=== PATIENT | female | born 1935 | race African-American/Black ===

== ENCOUNTER 2019-04-27 11:19 | Inpatient (IN) ==
--- NOTE | 2019-04-27 12:49 | Diag Imaging Result Doc PS360 ---
EXAM: CHEST-PORTABLE HISTORY: ams TECHNIQUE: Single view COMPARISON: 07/23/2017 FINDINGS: Poor inspiratory effort. The heart is mildly prominent. Mild vascular distention. No consolidation. No pleural effusions are found. IMPRESSION: Cardiomegaly with pulmonary edema. Electronically signed by Lalo Osman 04/27/2019 12:46 PM
--- NOTE | 2019-04-27 13:44 | PROVIDER DOCUMENTATION ---
This chart was entered by Dany Villalobos Scribe, acting as scribe for Jay Jay De Leon MD. HPI-Neurological Disorder - General Chief Complaint: Altered Mental Status Stated Complaint: CONFUSION Time Seen by Provider: 04/27/19 11:30 Source: patient, EMS Allergies/Adverse Reactions: Patient Allergies Allergy/AdvReac Type Severity Reaction Status Date / Time No Known Allergies Allergy Verified 04/27/19 11:54 Home Medications: Home Medication List Medication Instructions Recorded Confirmed Last Taken Type Rivaroxaban [Xarelto] 15 mg PO DAILY 06/09/15 04/27/19 04/25/19 07:00 History Carvedilol [Coreg] 6.25 mg PO BID 07/23/17 04/27/19 04/25/19 07:00 History Nifedipine E.r. [Adalat cc] 30 mg PO DAILY 07/23/17 04/27/19 04/25/19 07:00 History Latanoprost/Pf [Latanoprost 0.005% 1 drp OPHTHALMIC (EYE) HS 11/06/18 04/27/19 04/25/19 07:00 History Eye Drop] Losartan/Hydrochlorothiazide 1 ea PO DAILY 11/06/18 04/27/19 04/25/19 07:00 History [Losartan-Hctz 50-12.5 mg Tab] NPH, Human Insulin Isophane 10 unit SQ HS 11/06/18 04/27/19 04/25/19 07:00 History [Humulin N] NPH, Human Insulin Isophane 20 unit SQ QA 11/06/18 04/27/19 04/25/19 07:00 History [Humulin N] Sodium Bicarbonate 325 mg PO BID 11/06/18 04/27/19 04/25/19 07:00 History Latanoprost 1 drp BOTH EYES DAILY 04/27/19 04/27/19 04/25/19 07:00 History Levothyroxine Sodium 100 mcg PO DAILY 04/27/19 04/27/19 04/25/19 07:00 History - History of Present Illness-Neuro Nature of Presenting Problem: Pt is a 83 yof who presents to the ED with a CC of altered mental status. Pt reports she has been confused, weak, and has had a headache for three days. Pt reports she had thyroid surgery two weeks ago. Pt reports a hx of renal failure and states she is starting dialysis soon. Pt complains of generalized weakness and muscle aches. Pt denies any chest pain, nausea, vomiting, diarrhea, and shortness of breath. Headache Location: reports: global Severity: reports: mild Onset/Duration: reports: 3 days ago Timing: reports: still present Context: reports: other Character of Altered Mental Status: reports: confused Any recent trauma/injury?: reports: none Character of Deficits: reports: new weakness New weakness or altered sensation location:: reports: general (diffuse) Cognitive Baseline: alert, oriented x3 Gait Baseline: walks without assistance Associated Symptoms: reports: headache, confusion, weakness Similar Symptoms Previously?: Yes Recently seen or treated by another doctor?: No Review of Systems - Adult - REVIEW OF SYSTEMS - ADULT Constitutional: reports: see HPI Eyes: reports: no symptoms reported Ears, Nose, Mouth & Throat: reports: see HPI, throat pain Cardiovascular: reports: no symptoms reported Respiratory: reports: see HPI, cough Gastrointestinal: reports: no symptoms reported Genitourinary: reports: no symptoms reported Musculoskeletal: reports: see HPI, muscle aches, muscle weakness Integumentary: reports: no symptoms reported Neurological: reports: see HPI, headache/migraines Psychiatric: reports: see HPI Endocrine: reports: no symptoms reported Hematologic/Lymphatic: reports: no symptoms reported Allergic/Immunologic: reports: no symptoms reported All Other Systems: Reviewed and Negative Past History - Adult - PAST MEDICAL HISTORY-ADULT Review of Records: reports: Old Records Reviewed, Nursing Assessment Review, Medications Reviewed, Social history reviewed & non-contributory. Major Childhood Illnesses: reports: denies history Cardiovascular: reports: HTN Respiratory: reports: denies history Gastrointestinal: reports: denies history Obstetrical/Gynecological: reports: denies history Genitourinary: reports: dialysis Musculoskeletal: reports: denies history Neurological: reports: denies history Endocrine/Immune: reports: Diabetes Other Conditions: reports: denies history - PRIOR SURGERIES/PROCEDURES Surgical/Procedure History: reports: hysterectomy - IMMUNIZATION STATUS Childhood Immunizations: See Nurse Assessment Flu Vaccine: See Nurse Assessment - FAMILY HISTORY Family History: reviewed, not pertinent - SOCIAL HISTORY Smoking: denies, non-smoker Substance Use: none/never, denies Alcohol Use Frequency: never Physical Exam- Neurological - Physical Exam-Neuro Initial Vital Signs Reviewed: Yes General Appearance: alert, mild distress, obese Eye Exam: bilateral eye: PERRL HENMT: normocephalic/atraumatic, moist mucous membranes Head Injury: no evidence of injury Neck: non-tender, full range of motion Respiratory: chest non-tender, lungs clear, normal breath sounds Cardiovascular: normal peripheral pulses, regular rate, rhythm, no edema Abdominal Exam: non tender, soft Extremity: normal range of motion, non-tender stripper color Exam: normal hearing, normal speech, PERRL Neurologic: grossly normal, no motor/sensory deficits Integumentary: normal color, warm/dry Psych/Mental Status: normal mood/affect, normal thought content, normal thought process, oriented x 3 Progress - PLAN OF CARE/RESULTS Progress/Plan/Lab Results: Vital Signs - 8 hr 04/27/19 12:33 04/27/19 12:49 04/27/19 12:53 Pulse Rate 64 66 62 Respiratory Rate 19 18 18 Blood Pressure 93/60 93/60 93/60 O2 Sat by Pulse Oximetry 100 100 99 04/27/19 13:01 04/27/19 14:00 Pulse Rate 64 62 Respiratory Rate 17 17 Blood Pressure 122/82 148/99 O2 Sat by Pulse Oximetry 100 99 Laboratory Results - last 24 hr 04/27/19 04/27/19 04/27/19 13:00 14:26 14:36 WBC 12.87 H RBC 6.08 H Hgb 14.8 Hct 47.9 H MCV 78.8 L MCH 24.3 L MCHC 30.9 L RDW Std Deviation 17.2 H Plt Count 622 H MPV 9.8 Immature Gran % (Auto) 0.9 H Neut % (Auto) 66.5 Lymph % (Auto) 20.9 [place] % (Auto) 9.2 Eos % (Auto) 1.9 Baso % (Auto) 0.6 Immature Gran # (Auto) 0.12 H Neut # (Auto) 8.55 H Lymph # (Auto) 2.69 [place] # (Auto) 1.19 H Eos # (Auto) 0.24 Baso # (Auto) 0.08 Sodium Potassium Chloride Carbon Dioxide Anion Gap BUN Creatinine BUN/Creatinine Ratio Glucose POC Glucose 164 H D Calculated Osmolality Calcium Phosphorus Magnesium Total Bilirubin AST ALT Alkaline Phosphatase Total Protein Albumin Globulin Albumin/Globulin Ratio PTH Intact Urine Source CATH Urine Color YELLOW Urine Turbidity CLEAR Urine pH 7.0 Ur Specific [place] 1.013 Urine Protein 300 A Ur Glucose (Stick) TRACE Ur Ketones (Stick) NEGATIVE Urine Blood TRACE A Urine Nitrite NEGATIVE Urine Bilirubin NEGATIVE Urobilinogen Dipstick NORMAL Urine Leukocytes NEGATIVE Urine WBC (Auto) <10 Urine RBC (Auto) <10 U Epithel Cells (Auto) <10 Urine Bacteria (Auto) NEGATIVE 04/27/19 14:36 WBC RBC Hgb Hct MCV MCH MCHC RDW Std Deviation Plt Count MPV Immature Gran % (Auto) Neut % (Auto) Lymph % (Auto) [place] % (Auto) Eos % (Auto) Baso % (Auto) Immature Gran # (Auto) Neut # (Auto) Lymph # (Auto) [place] # (Auto) Eos # (Auto) Baso # (Auto) Sodium 136 Potassium 4.7 Chloride 97 L Carbon Dioxide 22 L Anion Gap 17 BUN 41 H Creatinine 4.7 H BUN/Creatinine Ratio 9 Glucose 159 H POC Glucose Calculated Osmolality 285 Calcium 4.8 L* Phosphorus 5.3 H Magnesium 2.0 Total Bilirubin 0.42 AST 13 ALT < 5 L Alkaline Phosphatase 136 H Total Protein 6.2 L Albumin 3.4 L Globulin 2.8 Albumin/Globulin Ratio 1.2 PTH Intact 115 H Urine Source Urine Color Urine Turbidity Urine pH Ur Specific [place] Urine Protein Ur Glucose (Stick) Ur Ketones (Stick) Urine Blood Urine Nitrite Urine Bilirubin Urobilinogen Dipstick Urine Leukocytes Urine WBC (Auto) Urine RBC (Auto) U Epithel Cells (Auto) Urine Bacteria (Auto) Orders Category Date Time Status Admit - [facility] Routine AdmDCTranf 04/27/19 17:04 Active Activity - Strict Bedrest ORDERED Care 04/27/19 17:04 Active FSBS/Accucheck Result AC + HS Care 04/27/19 18:09 Active Neurological Check Q4H Care 04/27/19 17:05 Active Saline Loc DIRECTED Care 04/27/19 17:04 Active Update & Confirm Home Medicati ROUTINE Care 04/27/19 18:09 Active Vital Signs Order ROUTINE Care 04/27/19 17:04 Active Z-Document. for Tele Applied ORDERED Care 04/27/19 17:05 Active Physician/Provider Consults Routine Cons 04/28/19 07:30 Ordered Diabetic Diet Diet 04/27/19 17:05 Active CHEST-PORTABLE [RAD] Stat Exams 04/27/19 12:[address] HEAD W/O CONTRAST [CT] Stat Exams 04/27/19 17:19 Ordered CBC WITH ELECTRONIC DIFF [HEME] Routine Lab 04/28/19 06:00 Ordered CBC WITH ELECTRONIC DIFF [HEME] Stat Lab 04/27/19 14:36 Completed COMPREHENSIVE METABOLIC PANEL [CHEM] Routine Lab 04/28/19 06:00 Ordered COMPREHENSIVE METABOLIC PANEL [CHEM] Stat Lab 04/27/19 14:36 Completed MAGNESIUM [CHEM] Stat Lab 04/27/19 14:36 Completed PTH W CA AND PHOS [CHEM] Stat Lab 04/27/19 14:36 Completed UA NIMS W/REFLEX CULT [URINALYSIS] Stat Lab 04/27/19 14:26 Completed 0.9% Sodium Chloride Inj [Ns] 1,000 ml Med 04/27/19 17:02 Discontinued IV 999 mls/hr Acetaminophen [Tylenol] Med 04/27/19 17:04 Active 650 mg PO Q6H PRN PRN Calcium Gluconate 2 gm Med 04/27/19 16:43 Discontinued 0.9% Sodium Chloride Inj [Ns] 100 ml IV NOW Insulin Lispro [Humalog] Med 04/27/19 21:00 Active See Protocol SUBQ 0700,1100,1600,2100 Ondansetron [Zofran] Med 04/27/19 17:04 Active 4 mg IV Q4H PRN PRN Telemetry [OM.EQ] Routine Oth 04/27/19 17:04 Active EKG [EKG] Stat Ther 04/27/19 12:30 Draft Transfer/Admit Order [TRANSFER] Routine Transfer 04/27/19 17:06 Completed Result Diagrams: 04/27/19 14:36 04/27/19 14:36 - EKG 1 Time of EKG reading by physician:: 12:31 EKG Read and Signed by:: Jay Jay De Leon EKG Interpretation (*Must complete 3 of following elements*): Abnormal (Possible left atrial enlargement; Anteroseptal infarct, age undetermined; Prolonged QT; No STEMI) Rate: 64 Rhythm: NSR Drifting: normal QRS: normal ID Interval: normal ST Wave: normal - XRAY 1 XRAY: Bilateral XRAY Study: Chest Impression: See EMR Report (EXAM: CHEST-PORTABLE HISTORY: ams TECHNIQUE: Single view COMPARISON: 07/23/2017 FINDINGS: Poor inspiratory effort. The heart is mildly prominent. Mild vascular distention. No consolidation. No pleural effusions are found. IMPRESSION: Cardiomegaly with pulmonary edema. Electronically signed by Lalo Osamn 04/27/2019 12:46 PM 04/27/19 1246 Interpreting Physician: Lalo Osman MD Dictated Date/Time: 04/27/19 1245 cc: Jay Jay De Leon MD; Jaime Huggins MD) - CONSULTS/PCP/HOSPITALIST Notification #1 *Consult/PCP/Hospitalist*: Dr. Huggins Time Discussed: 16:35 Reason/Comments: Made aware of pt and accepts admission. Consult Disposition: Admit Departure - Departure Date of Disposition Decision: 04/27/19 Time of Disposition Decision: 16:37 DIAGNOSIS: Hypocalcemia Disposition: ADMITTED INPATIENT 09 Certified Medical Emergency: Emergent Condition: Stable - Critical Care Note This patient required my direct & personal management of CC.: No Attestation - Physician/ PHILIP Attestation Patient care was provided by Advanced Practice Provider:: No The physician spent face to face time with patient:: Yes Advanced Practice Provider documentation review:: Supervising physician onsite and consulted in the evaluation and care of this patient. The physician did have a face to face encounter with the patient. This chart was documented by the indicated scribe, (Dany Villalobos, [place]) and accurately reflects the services I performed and decisions made by me, Jay Jay De Leon MD, as attested by the provider's signature.
[2019-04-27 14:29] LABS: URINE SOURCE CATH
--- NOTE | 2019-04-27 14:34 | EKG Report ---
Test Performed on : 04/27/2019 12:30:19 PM Test Reason : CONFUSION Blood Pressure : / mmHG Vent. Rate : 064 BPM Atrial Rate : 064 BPM P-R Int : 202 ms QRS Dur : 070 ms QT Int : 560 ms P-R-T Axes : 041 026 044 degrees QTc Int : 577 ms Normal sinus rhythm. Possible Left atrial enlargement Anteroseptal infarct (cited on or before 23-JUL-2017) Prolonged QT Abnormal ECG When compared with ECG of 08-JUL-2018 09:15, QT has lengthened Unconfirmed Result
[2019-04-27 14:36] LABS: BILIRUBIN URINE NEGATIVE (NEGATIVE); BLOOD URINE TRACE (NEGATIVE); COLOR YELLOW; GLUCOSE URINE TRACE mg/dL (NEGATIVE); KETONE URINE NEGATIVE (NEGATIVE); LEUKOCYTES URINE NEGATIVE (NEGATIVE); NITRITE URINE NEGATIVE (NEGATIVE); PROTEIN URINE 300 mg/dL (NEGATIVE); SP GRAVITY URINE 1.013; TURBIDITY URINE CLEAR (CLEAR); UR EPITHELIAL CELLS <10 /HPF (<10); URINE BACTERIA NEGATIVE /HPF; URINE RBC <10 /HPF (<10); URINE WBC <10 /HPF (<10); UROBILINOGEN URINE NORMAL (NORMAL)
[2019-04-27 14:52] LABS: BASO# 0.08 X1000 (0.0-0.2); BASO% 0.6 % (0.0-0.8); EOS# 0.24 X1000 (0.0-0.7); EOS% 1.9 % (0.0-10.0); HEMATOCRIT 47.9 % (37.0-47.0); HEMOGLOBIN 14.8 g/dL (12.0-16.0); IMM GRAN# 0.12 X1000 (0.0-0.04); IMM GRAN% 0.9 % (0.0-0.5); LYMPH# 2.69 X1000 (1.2-3.4); LYMPH% 20.9 % (20.5-51.1); MCH 24.3 PG (27-31); MCHC 30.9 g/dL (33-37); MCV 78.8 FL (81-99); MONO# 1.19 X1000 (0.11-0.59); MONO% 9.2 % (1.7-9.3); MPV 9.8 FL (7.4-10.4); NEUT# 8.55 X1000 (1.4-6.5); NEUT% 66.5 % (42.2-75.2); PLT 622 X1000 (130-400); RBC 6.08 XMIL (4.2-5.4); RDW 17.2 % (11.5-14.5); WBC 12.87 X1000 (4.8-10.8)
[2019-04-27 15:33] LABS: PTH INTACT 115 pg/mL (16-65)
[2019-04-27 15:41] LABS: AGAP 17; BUN 41 mg/dL (8-22); CHLORIDE 97 mmol/L (98-107); COSMO 285; CREATININE 4.7 mg/dL (0.5-0.9); GLUCOSE 159 mg/dL (70-104); POTASSIUM 4.7 mmol/L (3.5-5.1); SODIUM 136 mmol/L (136-145); TCO2 22 mmol/L (25-35)
[2019-04-27 15:42] LABS: ALB/GLOB RATIO 1.2; ALBUMIN 3.4 g/dL (3.5-5.0); ALKALINE PHOSPHATASE 136 U/L (32-104); CALCIUM 4.8 mg/dL (8.8-10.2); GOT 13 U/L (10-30); GPT < 5 U/L (10-36); TOTAL BILIRUBIN 0.42 mg/dL (0.20-1.00); TOTAL PROTEIN 6.2 g/dL (6.3-8.3)
[2019-04-27 15:43] LABS: PHOSPHORUS 5.3 mg/dL (2.7-4.5)
[2019-04-27] MEDS ORDERED: CALCIUM GLUCONATE 2 GM in NS 100 ML IV ONE (16:43)
[2019-04-27] MEDS ORDERED: NS 1,000 ML IV ONE (17:02)
[2019-04-27] MEDS ORDERED: ZOFRAN IV PRN (17:04)
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
--- NOTE | 2019-04-27 21:31 | Diag Imaging Result Doc PS360 ---
CT HEAD W/O CONTRAST - 04/27/2019 INDICATION: AMS COMPARISON: None FINDINGS: The ventricles and sulci are normal in size and contour. There is mild cerebral white matter hypodensity compatible with chronic microvascular ischemia. No intracranial mass or hemorrhage. The skull is intact. IMPRESSION: Chronic microvascular ischemia. No acute intracranial abnormality. This exam was performed using automated exposure control, adjustment of mA or kV according to patient size, and/or use of iterative reconstruction technique Electronically signed by Jung Weaver 04/27/2019 9:29 PM
[2019-04-27] MEDS ORDERED: NS 1,000 ML IV SCH (23:00)
[2019-04-28] MEDS: HUMALOG SUBQ SCH ×5 (02:58→21:11)
[2019-04-28] MEDS: SYNTHROID PO SCH (06:01)
[2019-04-28] MEDS ORDERED: CALCIUM GLUCONATE IV PUSH ONE (07:12)
[2019-04-28 07:15] LABS: BASO# 0.13 X1000 (0.0-0.2); BASO% 1.1 % (0.0-0.8); EOS# 0.21 X1000 (0.0-0.7); EOS% 1.8 % (0.0-10.0); HEMATOCRIT 47.5 % (37.0-47.0); HEMOGLOBIN 14.7 g/dL (12.0-16.0); IMM GRAN# 0.08 X1000 (0.0-0.04); IMM GRAN% 0.7 % (0.0-0.5); LYMPH# 2.26 X1000 (1.2-3.4); LYMPH% 19.9 % (20.5-51.1); MCH 25.1 PG (27-31); MCHC 30.9 g/dL (33-37); MCV 81.1 FL (81-99); MONO# 1.09 X1000 (0.11-0.59); MONO% 9.6 % (1.7-9.3); MPV 10.1 FL (7.4-10.4); NEUT# 7.61 X1000 (1.4-6.5); NEUT% 66.9 % (42.2-75.2); PLT 572 X1000 (130-400); RBC 5.86 XMIL (4.2-5.4); RDW 18.1 % (11.5-14.5); WBC 11.38 X1000 (4.8-10.8)
[2019-04-28 08:32] LABS: CALCIUM 4.9 mg/dL (8.8-10.2)
[2019-04-28 08:37] LABS: AGAP 17; ALB/GLOB RATIO 0.9; ALBUMIN 3.1 g/dL (3.5-5.0); ALKALINE PHOSPHATASE 125 U/L (32-104); BUN 39 mg/dL (8-22); CHLORIDE 103 mmol/L (98-107); COSMO 296; CREATININE 4.8 mg/dL (0.5-0.9); ESTIMATED GFR 11; GLUCOSE 123 mg/dL (70-104); GOT 13 U/L (10-30); GPT < 5 U/L (10-36); POTASSIUM 3.9 mmol/L (3.5-5.1); SODIUM 143 mmol/L (136-145); TCO2 23 mmol/L (25-35); TOTAL BILIRUBIN 0.55 mg/dL (0.20-1.00); TOTAL PROTEIN 6.5 g/dL (6.3-8.3)
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
[2019-04-28] MEDS ORDERED: SODIUM CHLORIDE 0.9% 10 ML ONE (08:56)
[2019-04-28] MEDS ORDERED: ROCALTROL PO SCH (09:00)
[2019-04-28] MEDS: XARELTO PO SCH (09:01)
[2019-04-28] MEDS: SODIUM BICARBONATE PO SCH ×2 (09:01→21:10)
[2019-04-28] MEDS: TUMS EXTRA STRENGTH PO SCH ×3 (09:01→18:26)
[2019-04-28] MEDS: XALATAN 0.005% OPH SOLN BOTH EYES SCH ×2 (09:02→21:11)
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
[2019-04-28] MEDS ORDERED: CALCIUM GLUCONATE 10 GM in D5W 1,000 ML IV SCH (14:00)
[2019-04-28] MEDS: ROCALTROL PO SCH ×2 (14:20→18:26)
[2019-04-29] MEDS: SYNTHROID PO SCH ×2 (04:00→06:03)
[2019-04-29] MEDS: TYLENOL PO PRN (04:00)
[2019-04-29] MEDS: HUMALOG SUBQ SCH ×4 (06:31→21:25)
[2019-04-29] MEDS ORDERED: REMERON PO PRN (08:37)
[2019-04-29] MEDS: TUMS EXTRA STRENGTH PO SCH ×3 (08:57→17:38)
[2019-04-29] MEDS: XARELTO PO SCH (08:57)
[2019-04-29] MEDS: ROCALTROL PO SCH ×3 (08:57→17:38)
[2019-04-29] MEDS: SODIUM BICARBONATE PO SCH ×2 (08:57→21:20)
[2019-04-29] MEDS ORDERED: CALCIUM GLUCONATE 10 GM in D5W 1,000 ML IV SCH (09:35)
--- NOTE | 2019-04-29 14:46 | NEPHROLOGY PROGRESS NOTE ---
DATE: 04/29/2019 Subjective: Family at bedside patient awake laying in bed. Complains of a headache during the night that was relieved with Tylenol. Voice is fatigue went up walking to the bathroom. She has refused her IV with nursing staff. Objective: vitals. Temperature 98.2, pulse 64, respirations 18, blood pressure 147/62, 02 sat 97% on room air. General: Obese female lying in bed in no acute distress HEENT: Normocephalic, atraumatic. Trachea midline. Pupils equal and reactive to light. Skin: warm, dry and intact. Neck: Supple, JVD appreciated. Scar to neck from recent surgery. Cardiovascular: S1, S2, no murmurs or gallops. Respiratory: clear with equal air excursion. Abdomen: soft, obese, non tender, mildy distended. Bowel sounds present. : non-inspected. Extremities: no clubbing or cyanosis. 1+ pitting Edema to bilateral upper and 1+ pitting to lower extremities. Fistula to right upper arm with positive thrill and bruit Neurological: alert and oriented to person, place, and time Labs: intake 1370, output 300. Impression: Hypocalcemia. She was on a calcium drip until 0400 today when her IV infiltrated. She is refusing staff to attempt an IV access. I stat ionized calcium q6 hours ordered. Continue CaCO3, calcitriol. Central line if IV calcium is required. rg Chronic kidney disease stage 5. Denies any uremic complaints. Does not meet criteria for urgent Renal replacement therapy. Acid base balance. Stable. cc: MD Jaime Morin MD MTDD
--- NOTE | 2019-04-29 20:55 | PROGRESS NOTE ---
DATE: 04/29/2019 SUBJECTIVE: The patient slept a little bit last night. She states that she feels a little bit better. She is very concerned about the IV in her left arm, which Dr. Celeste said that we were to seek some other access for. OBJECTIVE: Vital Signs: 97.9, 72, 19, 134/106, 97% saturated on room air. General: The patient is still quite animated. She is alert, oriented, conversive and generally appropriate. Lungs: Clear. Cardiovascular: Regular. Extremities: Right hand and forearm were swollen from IV infiltration. LABORATORY DATA: Calcium level was up to 6.5 last night. ASSESSMENT AND PLAN: 1. The patient is postoperative hypocalcemia, has been addressed and she has ongoing treatment as soon as we can establish IV access. She has been gently hydrated. Dr. Celeste is following. 2. The patient is on a diabetic diet. We are using fingerstick blood sugars and sliding scale insulin. 3. The patient is on telemetry. I have not restarted her high blood pressure medications because of adequate control without them at the present time. 4. The patient continues on levothyroxine. 5. The patient is on Xarelto. cc: Jaime Huggins MD
[2019-04-29] MEDS: XALATAN 0.005% OPH SOLN BOTH EYES SCH (21:21)
[2019-04-30] MEDS: SYNTHROID PO SCH (06:05)
[2019-04-30] MEDS: HUMALOG SUBQ SCH ×4 (06:31→20:10)
[2019-04-30] MEDS: ROCALTROL PO SCH ×3 (08:37→17:03)
[2019-04-30] MEDS: TUMS EXTRA STRENGTH PO SCH ×3 (08:37→17:02)
[2019-04-30] MEDS: SODIUM BICARBONATE PO SCH ×2 (08:37→20:09)
[2019-04-30] MEDS: XALATAN 0.005% OPH SOLN BOTH EYES SCH (08:37)
[2019-04-30] MEDS: TYLENOL PO PRN ×2 (08:37→20:33)
[2019-04-30] MEDS: XARELTO PO SCH (08:37)
--- NOTE | 2019-04-30 14:49 | NEPHROLOGY PROGRESS NOTE ---
DATE: 04/30/2019 Subjective: patient lying in bed resting with eyes closed, aroused to verbal stimuli. Denies any uremic complaints. Denies any altered mentation. Objective: vitals. Temperature 98.3, pulse 41, respirations 19, blood pressure 143/83, 02 sat 97% on room air. General: Obese female lying in bed in no acute distress HEENT: Normocephalic, atraumatic. Trachea midline. Pupils equal and reactive to light. Skin: warm, dry and intact. Neck: Supple, JVD appreciated. Scar to neck from recent surgery. Cardiovascular: S1, S2, with a gallop. No murmur. Respiratory: clear with equal air excursion. Abdomen: soft, obese, non tender, mildy distended. Bowel sounds present. : non-inspected. Extremities: no clubbing or cyanosis. 1+ pitting Edema to bilateral upper and lower extremities. Fistula to right upper arm with positive thrill and bruit Neurological: alert and oriented to person, place, and time Labs: intake 1370, output 300. Ionized calcium 0.93 Impression: Hypocalcemia. Restart calcium drip, if no IV access obtainable consult surgery for CVL. Chronic kidney disease stage 5. Denies any uremic complaints. Does not meet criteria for urgent Renal replacement therapy. Acid base balance. In target. cc: MD Jaime Morin MD [facility]Hang
--- NOTE | 2019-04-30 17:40 | PROGRESS NOTE ---
DATE: 04/30/2019 SUBJECTIVE: The patient states she slept a little bit better last night, but the sleeping pill did not "knock her out." She stated she had a mild headache this morning. We discussed options for IV access because her calcium level continues to be marginal to only marginally improved. We will need to start an EJ line, and that was arranged with the nursing staff that morning. OBJECTIVE: Vital Signs: Temperature 98.3, pulse rate of 70, respiratory rate of 19, blood pressure 143/83, 97% saturated on room air physical. Lungs: Clear. Cardiovascular: Regular. Neuropsychiatric: Patient is alert, oriented, conversive, and appropriate. Extremities: Trace edema in the lower extremities in the dependent areas. ASSESSMENT AND PLAN: 1. As soon as we can reestablish the external jugular line, we will likely continue intravenous infusion of calcium as per Dr. Celeste's previous orders. I think she will require several more days to get this equilibrated. She is still in a significant calcium deficit. 2. The patient is on a diabetic diet. Her blood sugars are reasonably well controlled. I will plan to make no changes on her present therapy, even though we have left off her standing doses of insulin at the present time. 3. We have not restarted high blood pressure medications. A reading this afternoon appears to be elevated, but that is the first one that has been that way. We will see where this equilibrates out to, and we will restart as appropriate. 4. The patient continues on levothyroxine. 5. Anticoagulation on Xarelto 20 mg. cc: Jaime Huggins MD
[2019-04-30] MEDS ORDERED: CALCIUM GLUCONATE 10 GM in D5W 1,000 ML IV SCH (18:00)
[2019-05-01] MEDS: HUMALOG SUBQ SCH ×4 (06:00→21:53)
[2019-05-01] MEDS: SYNTHROID PO SCH (06:09)
[2019-05-01] MEDS: TYLENOL PO PRN (06:13)
[2019-05-01] MEDS: CALCIUM GLUCONATE 10 GM in D5W 1,000 ML IV SCH (09:00)
--- NOTE | 2019-05-01 09:30 | PROGRESS NOTE ---
DATE: 05/01/2019 SUBJECTIVE: The patient stated that she slept better last night, but had a headache most of yesterday afternoon and today. The patient has had no muscle spasm, cramping, palpitations, or chest pain. OBJECTIVE: Vital Signs: 98.0, 71, 17, 138/102, and 96% saturated on room air. General: The patient was sleeping when I came in, but was easily aroused and was alert, conversive and appropriate. Lungs: Clear. Cardiovascular: Regular. Extremities: Trace edema. LABORATORY: Ionized calcium level of 1.12 (normal). ASSESSMENT AND PLAN: 1. The patient's ionized calcium level has just reached the threshold of normalcy. I think we should continue IV calcium per Dr. Celeste's orders for another day or so as well as the oral supplementation. She has adequate IV access in the form of EJ on the left side of her neck. I will certainly defer to Dr. Celeste's judgment in this arena. 2. The patient's complaint of headache could likely be related to her blood pressure since admission I held her blood pressure medications because it started out relatively low, and seemed to be in the middling levels throughout her hospitalization. It seemed to have crept up over the last 24 to 36 hours, and I plan to reinstitute 2 of the blood pressure medications this morning and monitor her progress. 3. The patient's diabetes seems to be reasonably well controlled on sliding scale. We have not put her back on her regular doses of insulin yet. 4. Physical Therapy has been consulted to see about how well the patient can walk, and what her stability is like. 5. Thyroid replacement is stable. 6. The patient remains on Xarelto 20 mg. cc: Jaime Huggins MD
[2019-05-01] MEDS: ROCALTROL PO SCH ×3 (09:41→16:59)
[2019-05-01] MEDS: TUMS EXTRA STRENGTH PO SCH ×3 (09:41→16:59)
[2019-05-01] MEDS: ADALAT CC PO SCH (09:41)
[2019-05-01] MEDS: SODIUM BICARBONATE PO SCH ×2 (09:42→21:52)
[2019-05-01] MEDS: XARELTO PO SCH (09:42)
[2019-05-01] MEDS: COREG PO SCH ×2 (09:42→21:52)
--- NOTE | 2019-05-01 20:41 | NEPHROLOGY PROGRESS NOTE ---
DATE: 05/01/2019 SUBJECTIVE: She still states she feels bad. Complaining of a headache and cough today. OBJECTIVE: Vital Signs: Blood pressure 121/74, heart rate 71, respiration 19, afebrile. General: No acute distress. Neck veins are not distended. Oropharynx is clear. Heart: Regular. Lungs: Equal. No crackles. Abdomen: Soft, nontender. Bowel sounds present. Extremities: No edema. IMPRESSION: Hypocalcemia. Her last measured ionized calcium was 1.12. I decreased her calcium drip and we will recheck her calcium today at 1500. If acceptable then we will stop her IV calcium at that point. Continue oral calcium and Rocaltrol. Otherwise, I will recheck her chemistries in the morning. cc: MD Jaime Morin MD
[2019-05-01] MEDS: XALATAN 0.005% OPH SOLN BOTH EYES SCH (21:54)
[2019-05-02] MEDS: TYLENOL PO PRN (04:17)
[2019-05-02] MEDS: CALCIUM GLUCONATE 10 GM in D5W 1,000 ML IV SCH (05:58)
[2019-05-02] MEDS: SYNTHROID PO SCH (05:59)
[2019-05-02] MEDS: HUMALOG SUBQ SCH ×4 (05:59→21:25)
[2019-05-02 07:01] LABS: HEMOGLOBIN 13.9 g/dL (12.0-16.0); MCH 24.6 PG (27-31); MCHC 31.6 g/dL (33-37); MCV 77.9 FL (81-99); MPV 10.4 FL (7.4-10.4); RBC 5.65 XMIL (4.2-5.4); RDW 16.1 % (11.5-14.5); WBC 13.52 X1000 (4.8-10.8)
[2019-05-02 07:31] LABS: ALBUMIN 3.2 g/dL (3.5-5.0); PHOSPHORUS 5.1 mg/dL (2.7-4.5); POTASSIUM 4.7 mmol/L (3.5-5.1)
[2019-05-02] MEDS: ADALAT CC PO SCH (09:25)
[2019-05-02] MEDS: COREG PO SCH ×2 (09:25→21:24)
[2019-05-02] MEDS: TUMS EXTRA STRENGTH PO SCH ×3 (09:25→17:32)
[2019-05-02] MEDS: SODIUM BICARBONATE PO SCH ×2 (09:25→21:24)
[2019-05-02] MEDS: XARELTO PO SCH (09:25)
[2019-05-02] MEDS: ROCALTROL PO SCH ×3 (09:25→17:32)
--- NOTE | 2019-05-02 13:57 | PROGRESS NOTE ---
DATE: 05/02/2019 SUBJECTIVE: This is an 83-year-old who underwent thyroidectomy surgery approximately 3 weeks ago in [place]. Last Saturday, patient had an episode in the car, was actually confused and trapped in the car, unable to get out for 2 hours, suspected that her blood sugars dropped and that was at least partially responsible for that episode. She did poorly over the weekend, generally weak. Daughter got off work from director of student aid and came in and found her more confused and agitated. PAST MEDICAL HISTORY: 1. Type 1 diabetes mellitus with retinopathy, nephropathy. 2. End-stage renal disease. Patient had a graft placed, but has not reached the point where she needs dialysis. 3. Hyperlipidemia. 4. Hypertension. 5. Diffuse degenerative arthritis. 6. Open-angle glaucoma. 7. Obesity. 8. Right rotator cuff tear. 9. Personal history of deep venous thrombosis. PAST SURGICAL HISTORY: 1. Abdominal hysterectomy. 2. Bilateral cataract removal. 3. Laser retinal surgery for retinopathy. 4. Thyroidectomy on 04/06/2019. ADMISSION DIAGNOSES: Includes acute mental status change, metabolic encephalopathy. CT of the head without contrast was done. The patient approaching end-stage renal disease, she is stage 5D and been following her sugars. She reports that she feels a little better today. She did respond and answer questions. OBJECTIVE: Temperature 98.4 degrees, pulse 60, respirations 17, blood pressure 111/63. Pupils are equal and round. Lungs are clear in all lung nino. Cardiovascular regular rate without murmur or S3. LABORATORY DATA: Blood sugar 176, 160, 150, 196. ASSESSMENT AND PLAN: 1. Hypocalcemia. Last measured ionized calcium was 1.12. Dr. Celeste is following. He decreased her calcium drip and recheck the calcium yesterday, calcium was 5.1. Continue calcium drip. Continue oral calcium and Rocaltrol. 2. The patient complains of a headache likely related to her blood pressure, so held the blood pressure medications. She states her headache is better. 3. Diabetes mellitus type 2. Continue sliding scale. 4. Physical Therapy consulted. 5. Thyroid replacement, stable. 6. The patient remains on Xarelto. CURRENT ORDERS: The patient is on Rocaltrol which is calcitriol 1 mcg p.o. t.i.d., calcium carbonate 1500 mg p.o. t.i.d., Coreg 6.25 mg twice a day. She is getting her Latanoprost eyedrops, Synthroid 100 mcg p.o. daily, Remeron 7.5 mg at bedtime, nifedipine 30 mg p.o. daily, Xarelto 15 mg a day, sodium bicarbonate 325 mg p.o. b.i.d. cc: MD Jaime Willis MD
--- NOTE | 2019-05-02 19:01 | NEPHROLOGY PROGRESS NOTE ---
DATE: 05/02/2019 SUBJECTIVE: She states she has been up out of bed. She became weak and returned to the bed. Her appetite is okay but she states she does not like the food. OBJECTIVE: Vital Signs: Blood pressure 111/63, heart rate 60, respirations 17, afebrile. General: No acute distress. Skin: Warm and dry. Neck: Neck veins are not distended. Heart: Regular. No rubs. Lungs: Equal. No crackles. Abdomen: Soft, nontender. Extremities: Have no edema. Fistula with excellent thrill. IMPRESSION: Hungry-bone syndrome. Calcium this morning was 10.0. PLAN: I discontinued her IV calcium, and we will continue p.o. calcium and calcitriol. Recheck calcium in the morning. cc: MD Jaime Morin MD
[2019-05-02] MEDS: XALATAN 0.005% OPH SOLN BOTH EYES SCH (21:25)
[2019-05-03] MEDS: HUMALOG SUBQ SCH ×4 (06:31→20:47)
[2019-05-03] MEDS: ADALAT CC PO SCH (08:03)
[2019-05-03] MEDS: SYNTHROID PO SCH (08:03)
[2019-05-03] MEDS: TUMS EXTRA STRENGTH PO SCH ×3 (08:03→16:53)
[2019-05-03] MEDS: COREG PO SCH ×2 (08:03→20:46)
[2019-05-03] MEDS: ROCALTROL PO SCH ×3 (08:03→16:52)
[2019-05-03] MEDS: XARELTO PO SCH (08:03)
[2019-05-03] MEDS: SODIUM BICARBONATE PO SCH ×2 (08:03→20:46)
--- NOTE | 2019-05-03 13:11 | PROGRESS NOTE ---
DATE: 05/03/2019 SUBJECTIVE: Mrs. Macias still does not feel real good, but she feels better than yesterday. OBJECTIVE: Vital Signs: Her temp is 98 degrees, pulse 67, respirations 16, blood pressure 105/79. HEENT: Pupils are equal and round. Lungs: Clear in all lung nino. Cardiovascular: Regular rhythm and rate without murmur or S3. ASSESSMENT AND PLAN: 1. Hypocalcemia. Ionized calcium was 1.12. She is followed by Dr. Celeste. She has hungry bone syndrome. Calcium yesterday was up to 10, so I discontinued the intravenous calcium, and is on oral calcium and calcitriol. Continue to follow her levels. 2. She complains of headache related to blood pressure, and this has improved. Continue her present blood pressure medications. Blood pressure appears well controlled currently. She is on Coreg 6.25 mg twice daily, and that is really her only blood pressure medicine at this point. 3. History of hypothyroidism. Continue her Synthroid 100 mcg daily. She is on Xarelto 15 mg daily. She has a history of deep venous thrombosis, so continue present regimen. LABORATORY DATA: Looking at lab today, white count was 13,520 which is pretty stable, hematocrit 44, platelet count 621,000. Sodium 133, potassium 4.7, chloride 93, BUN 42, creatinine 5.0. Blood sugars 196, 198, 265, and 132. Her albumin is 3.2, and calcium was 10. Her creatinine is about where it stays at 4.75. PAST MEDICAL HISTORY: Chronic kidney disease stage 5, status post fistula placement. cc: MD Jaime Willis MD
[2019-05-03] MEDS: XALATAN 0.005% OPH SOLN BOTH EYES SCH (20:48)
[2019-05-03 21:10] LABS: ALBUMIN 3.3 g/dL (3.5-5.0); CALCIUM 11.3 mg/dL (8.8-10.2); CREATININE 5.3 mg/dL (0.5-0.9); PHOSPHORUS 4.3 mg/dL (2.7-4.5)
[2019-05-04] MEDS: TYLENOL PO PRN (02:56)
[2019-05-04] MEDS: SYNTHROID PO SCH (06:18)
[2019-05-04] MEDS: HUMALOG SUBQ SCH ×4 (06:19→21:34)
[2019-05-04] MEDS: TUMS EXTRA STRENGTH PO SCH ×2 (09:53→17:20)
[2019-05-04] MEDS: SODIUM BICARBONATE PO SCH ×2 (09:54→21:33)
[2019-05-04] MEDS: ROCALTROL PO SCH ×2 (09:54→21:33)
[2019-05-04] MEDS: XALATAN 0.005% OPH SOLN BOTH EYES SCH ×2 (09:55→21:36)
[2019-05-04] MEDS: ADALAT CC PO SCH (09:55)
[2019-05-04] MEDS: COREG PO SCH ×2 (09:55→21:34)
[2019-05-04] MEDS: XARELTO PO SCH (09:55)
--- NOTE | 2019-05-04 11:29 | NEPHROLOGY PROGRESS NOTE ---
DATE: 05/04/2019 Subjective: lying in bed awake, voices feeling better having receiving Tylenol for a headache around 3AM. Says she is able to get up to go to the bathroom with minimal difficulty. Objective: vitals. Temperature 97.9, pulse 58, respirations 16, blood pressure 127/88, O2 sat 100% on room air. General: Obese female lying in bed in no acute distress HEENT: Normocephalic, atraumatic. Trachea midline. Pupils equal and reactive to light. Skin: warm, dry and intact. Neck: Supple, 6cm JVD appreciated. Scar to neck from recent surgery. Cardiovascular: S1, S2, with a soft systolic murmur. No gallop Respiratory: clear with equal air excursion. Abdomen: soft, obese, non tender, mildy distended. Bowel sounds present. : non-inspected. Extremities: no clubbing or cyanosis. 1+ pitting Edema to bilateral upper and 2+ pitting to lower extremities. Fistula to right upper arm with positive thrill and bruit Neurological: alert and oriented to person, place, and time Labs: intake for 80, output 400. Impression: 1. Hypocalcemia. Resolved. If calcium is >0.95, she could be discharged from our perspective. Continue CaCO3 and calcitriol as an outpatient. 2. Chronic kidney disease stage 5. Denies any uremic complaints. Does not meet criteria for urgent Renal replacement therapy. We will follow up with her in the office. 3. Electrolytes and acid base balance. Stable. 4. Medications reviewed. cc: MD Jaime Morin MD MTDD
[2019-05-04] MEDS ORDERED: ZOFRAN PO PRN (12:49)
--- NOTE | 2019-05-04 16:36 | PROGRESS NOTE ---
DATE: 05/04/2019 SUBJECTIVE: The patient states that she still gets a headache periodically, but Tylenol seems to help. We discussed her blood pressure, blood sugar numbers, as well as her calcium. She states that she is still little weak and did not want to go to rehab, but wanted to go home. I told her that we will get another physical therapy session today and monitor her progress with walking, and if she seems stable enough, we will be able to send her home the following day. I also spoke with Dr. Celeste about rechecking calcium which turned out in the normal range today. OBJECTIVE: Vital Signs: 97.9, 65, 16, 117/79. Lungs: On physical exam, lungs are clear. Cardiovascular: Regular. Extremities: Trace edema in the lower extremities. Neuro psych: Alert, oriented, conversive and appropriate. ASSESSMENT AND PLAN: 1. The patient's ionized calcium was within normal range. We will check another calcium level tomorrow, along with albumin to make sure that she is still okay with that, and then we will likely discharge if that is okay. Dr. Celeste had given his permission to do so. 2. The patient continues to have intermittent headache. Her blood pressure is reasonably well controlled on 2 of the blood pressure medications she was taking before. 3. Diabetes was reasonably controlled on sliding scale insulin. She will likely return to her previous insulin dosing. 4. Physical therapy: Note was reviewed from today and she walked 110 feet in the ramos with some verbal cues, but was reasonably stable. 5. Thyroid is stable. 6. Patient is on Xarelto. cc: Jaime Huggins MD
[2019-05-04] MEDS ORDERED: HUMULIN N SUBQ SCH (21:00)
[2019-05-05] MEDS: SYNTHROID PO SCH (07:09)
[2019-05-05] MEDS: TUMS EXTRA STRENGTH PO SCH (07:09)
[2019-05-05] MEDS: HUMALOG SUBQ SCH ×2 (07:10→13:17)
[2019-05-05 07:36] LABS: ALBUMIN 3.2 g/dL (3.5-5.0); CALCIUM 9.7 mg/dL (8.8-10.2); CREATININE 5.6 mg/dL (0.5-0.9); POTASSIUM 4.1 mmol/L (3.5-5.1); TOTAL BILIRUBIN 0.37 mg/dL (0.20-1.00); TOTAL PROTEIN 6.5 g/dL (6.3-8.3)
[2019-05-05] MEDS ORDERED: HUMULIN N SUBQ SCH (09:00)
[2019-05-05] MEDS: XALATAN 0.005% OPH SOLN BOTH EYES SCH (09:35)
[2019-05-05] MEDS: ADALAT CC PO SCH (09:36)
[2019-05-05] MEDS: ROCALTROL PO SCH (09:36)
[2019-05-05] MEDS: SODIUM BICARBONATE PO SCH (09:37)
[2019-05-05] MEDS: XARELTO PO SCH (09:41)
[2019-05-05] MEDS: COREG PO SCH (09:42)
--- NOTE | 2019-05-05 11:27 | NEPHROLOGY PROGRESS NOTE ---
DATE: 05/05/2019 Subjective: lying in bed resting, aroused to verbal stimuli , voices feeling so- so. Says she got out of bed 3 times yesterday with minimal difficulty. Objective: vitals. Temperature 98.0, pulse 65, respirations 18, blood pressure 136/88, 02 sat 98% on room air. General: Obese female lying in bed in no acute distress HEENT: Normocephalic, atraumatic. Trachea midline. Pupils equal and reactive to light. Skin: warm, dry and intact. Neck: Supple, 6cm JVD appreciated. Scar to neck from recent surgery. Cardiovascular: S1, S2, with a soft systolic murmur. No gallop Respiratory: clear with equal air excursion. Abdomen: soft, obese, non tender, mildy distended. Bowel sounds present. : non-inspected. Extremities: no clubbing or cyanosis. 1+ pitting Edema to bilateral upper and 2+ pitting to lower extremities. Fistula to right upper arm with positive thrill and bruit Neurological: alert and oriented to person, place, and time Labs: [id number], output 1 unmeasured void. Sodium 136, potassium 4.1, chloride 96, carbon dioxide 24, anion gap 16, BUN 45, creatinine 5.6, calcium 9.7 Impression: Hypocalcemia. Resolved. If calcium is ok, she could be discharged from our perspective. 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 Calcium is stable on her current dose of calcium carbonate and calcitriol. Continue these at discharge. We will follow closely as an outpatient. Chronic kidney disease stage 5. Denies any uremic complaints. Does not meet criteria for urgent Renal replacement therapy. We will follow up with her in the office. Electrolytes and acid base balance. Stable. Medications reviewed. cc: MD Jaime Morin MD MTDD
[2019-05-05 12:56] VITALS: BP 119/87
--- NOTE | 2019-05-06 06:46 | DISCHARGE SUMMARY ---
ADMISSION DATE: 04/27/2019 DISCHARGE DATE: 05/05/2019 DISCHARGE DIAGNOSES: 1. Acute hypocalcemia secondary to surgical procedure. 2. Postprocedure hypothyroidism. 3. Type 1 diabetes without complication. 4. Hypertension. 5. Chronic kidney disease stage 5. HOSPITAL COURSE: The patient was admitted a week or 2 post hyperparathyroid surgery. In the emergency, she was found to be markedly hypocalcemic. She has stage 5 kidney, and was admitted to the hospital. The patient was gingerly hydrated and calcium was administered. We consulted Dr. Celeste who designed a calcium replacement protocol for her. The patient had initially presented with extreme weakness and some subtle mental status changes. Over the course of days as we repleted her calcium, she improved in her mental status and in her strength. Physical Therapy was performed for the last several days of her hospitalization, and she was able to walk in the r[place] with a gait belt and supervision. She did not want to go to rehab. The patient's IV calcium was eventually stopped, and she was continued on her oral calcium supplementation. In discussion with Dr. Celeste on the , he stated that she was ready to go home if her next calcium level was within range. On day of discharge, her calcium level was 9.7 with the albumin of 3.2. I also discussed with Dr. Celeste her slightly increasing creatinine levels. BUN was still in the 40s, and she was relatively asymptomatic from this. She has a graft placed in the right arm already, but she is not to the point where she needs dialysis yet. The patient is discharged home with calcium supplementation. She has follow up with me in 2 weeks to recheck calcium, BUN, creatinine and albumin. She has follow up with Dr. Celeste every 2 months. The only medication changes for home other than the additional calcium supplementation is the omission of her ARB/hydrochlorothiazide combination pill. Her blood pressure throughout her hospitalization was controlled on the 2 other agents that she was taking, and we simply left off the ARB with hydrochlorothiazide. We will continue to monitor her blood pressure when she comes back in for close follow-up. cc: Jaime Huggins MD
== END 2019-05-05 16:01 | disposition home health service (06) | DRG 920 ==
LOC: ED 11:19 → 3N 17:31
PROVIDERS: ADMIT Internal Medicine; ATTEND Internal Medicine